=== PATIENT | female | born 1940 | race Caucasian/White ===

== ENCOUNTER 2018-04-05 05:55 | Inpatient (IN) | payer OTHER ==
[~2018-04-05] VITALS: Ht 33 cm; Wt 4.0 kg
[~2018-04-05 05:55] MED LIST: AVALIDE 300-121 EACH PO; CARDURA XL4 MG PO; LIPITOR20 MG PO; SYNTHROID75 MCG PO; [UNRECOGNIZED DRUG - OTHER] PO
== END 2018-04-07 11:32 | disposition home or self-care (01) | DRG 483 ==
LOC: CIR.AMB 05:55 → SURG 16:40 → O/R 16:40 → SURG 17:31
PROVIDERS: ADMIT Orthopaedic Surgery Hand Surgery
PROC: 01X40Z4 Transfer Ulnar Nerve to Ulnar Nerve, Open Approach (ICD-10-PCS; 2018-04-05)
PROC: 0PSL04Z Reposition Left Ulna with Internal Fixation Device, Open Approach (ICD-10-PCS; 2018-04-05)
PROC: 0PT Upper Bones, Resection (ICD-10-PCS; 2018-04-05)
PROC: 0RRM0JZ Replacement of Left Elbow Joint with Synthetic Substitute, Open Approach (ICD-10-PCS; principal; 2018-04-05 08:30)
DX: M19.022 Primary osteoarthritis, left elbow (principal)